=== PATIENT | male | born 1980 | race Caucasian/White ===

== ENCOUNTER 2017-11-01 21:16 | Inpatient (IN) | payer OTHER ==
[2017-11-01] MEDS ORDERED: ONDANSETRON 4 MG INJ IV (22:30)
[2017-11-01] MEDS ORDERED: VANCOMYCIN IV PER PHARMACY XX (22:30)
[2017-11-01] MEDS ORDERED: NACL 0.9% 3 ML SYG IV ×2 (22:30)
[2017-11-01] MEDS ORDERED: HYDROCODONE/APAP (5/325) TAB PO (22:30)
[2017-11-01] MEDS ORDERED: ACETAMINOPHEN 325 MG TAB PO (22:30)
[2017-11-01] MEDS ORDERED: BISACODYL (EC) 5 MG TAB PO (22:30)
[2017-11-01] MEDS ORDERED: DOCUSATE SODIUM 100 MG CAP PO (22:30)
[2017-11-01] MEDS ORDERED: GLUCOSE GEL 15 GRAM TUBE BUCCAL (23:00)
[2017-11-01] MEDS ORDERED: GLUCAGON 1 MG INJ IM (23:00)
[2017-11-01] MEDS ORDERED: GLUCOSE GEL 15 GRAM TUBE PO (23:00)
[2017-11-01] MEDS ORDERED: DEXTROSE 50% 50 ML SYRINGE IV ×2 (23:00)
[2017-11-01 23:13] LABS: ADD MAN DIFF? NO
[2017-11-01 23:16] LABS: BASOPHILS % 0.2 % (0.0-2.0); EOSINOPHILS # 0.3 10^3/ul (0.0-0.5); EOSINOPHILS % 3.4 % (0.0-7.0); HEMATOCRIT 30.9 % (42.0-52.0); HEMOGLOBIN 10.3 g/dl (14.0-18.0); LYMPHOCYTES % 22.5 % (15.0-51.0); MEAN CORPUSCULAR HEMOGLOBIN 27.9 pg (29.0-33.0); MEAN CORPUSCULAR HGB CONC 33.3 g/dl (32.0-37.0); MEAN CORPUSCULAR VOLUME 83.7 fl (82.0-101.0); MEAN PLATELET VOLUME 9.4 fl (7.4-10.4); MONOCYTE # 0.7 10^3/ul (0.3-0.9); MONOCYTES % 7.4 % (0.0-11.0); NEUTROPHILS % 66.1 % (39.0-77.0); PLATELET COUNT 247 10^3/UL (140-415); RED BLOOD COUNT 3.69 10^6/ul (4.70-6.10)
[2017-11-01] MEDS: INSULIN GLARGINE [LANTus] (100 UNITS/ML) SYG SC (23:34)
[2017-11-01 23:41] LABS: ALANINE AMINOTRANSFERASE 29 IU/L (13-69); ALBUMIN 3.2 g/dl (3.3-4.9); ALBUMIN/GLOBULIN RATIO 0.88; ALKALINE PHOSPHATASE 174 IU/L (42-121); ANION GAP 10 (8-16); ASPARTATE AMINO TRANSFERASE 28 IU/L (15-46); CALCIUM 8.7 mg/dl (8.4-10.2); CARBON DIOXIDE 25 mmol/L (21-31); CHLORIDE 106 mmol/L (97-110); CREATININE 2.67 mg/dl (0.61-1.24); GLUCOSE 357 mg/dl (70-220); POTASSIUM 4.9 mmol/L (3.5-5.1); SODIUM 136 mmol/L (135-144); TOTAL PROTEIN 6.8 g/dl (6.1-8.1)
[2017-11-01 23:43] LABS: BLOOD UREA NITROGEN 34 mg/dl (7-20)
[2017-11-01] MEDS: INSULIN ASPART [NOVOLOG] 3 ML PEN SC (23:46)
[2017-11-02] MEDS: ACCU-CHEK XX (02:00)
[2017-11-02] MEDS: INSULIN ASPART [NOVOLOG] 3 ML PEN SC ×8 (02:20→21:20)
[2017-11-02 05:23] LABS: ADD MAN DIFF? NO
[2017-11-02 05:27] LABS: WHITE BLOOD COUNT 8.2 10^3/ul (4.8-10.8)
[2017-11-02 05:27] LABS: BASOPHILS % 0.4 % (0.0-2.0); EOSINOPHILS # 0.4 10^3/ul (0.0-0.5); EOSINOPHILS % 4.3 % (0.0-7.0); HEMATOCRIT 27.8 % (42.0-52.0); HEMOGLOBIN 9.3 g/dl (14.0-18.0); LYMPHOCYTES # 1.7 10^3/ul (0.8-2.9); LYMPHOCYTES % 20.5 % (15.0-51.0); MEAN CORPUSCULAR HEMOGLOBIN 27.9 pg (29.0-33.0); MEAN CORPUSCULAR HGB CONC 33.5 g/dl (32.0-37.0); MEAN CORPUSCULAR VOLUME 83.5 fl (82.0-101.0); MEAN PLATELET VOLUME 9.6 fl (7.4-10.4); MONOCYTE # 0.6 10^3/ul (0.3-0.9); MONOCYTES % 7.7 % (0.0-11.0); NEUTROPHIL # 5.4 10^3/ul (1.6-7.5); NEUTROPHILS % 66.6 % (39.0-77.0); PLATELET COUNT 230 10^3/UL (140-415); RED BLOOD COUNT 3.33 10^6/ul (4.70-6.10); RED CELL DISTRIBUTION WIDTH 12.1 % (11.5-14.5)
[2017-11-02 05:37] LABS: HEMOGLOBIN A1C 11.6 % (0-5.9)
[2017-11-02 05:48] LABS: ALANINE AMINOTRANSFERASE 29 IU/L (13-69); ALBUMIN 2.9 g/dl (3.3-4.9); ALKALINE PHOSPHATASE 148 IU/L (42-121); ANION GAP 10 (8-16); ASPARTATE AMINO TRANSFERASE 22 IU/L (15-46); BLOOD UREA NITROGEN 32 mg/dl (7-20); CALCIUM 8.7 mg/dl (8.4-10.2); CARBON DIOXIDE 25 mmol/L (21-31); CHLORIDE 111 mmol/L (97-110); CHOL/HDL RATIO 3.2 RATIO; CHOLESTEROL 109 mg/dl (100-200); CREATININE 2.56 mg/dl (0.61-1.24); GLUCOSE 231 mg/dl (70-220); HDL CHOLESTEROL 34 mg/dl (28-63); LDL CHOLESTEROL,CALCULATED 59 mg/dl; MAGNESIUM 2.2 mg/dl (1.7-2.5); POTASSIUM 4.5 mmol/L (3.5-5.1); SODIUM 141 mmol/L (135-144); TOTAL PROTEIN 6.5 g/dl (6.1-8.1); TRIGLYCERIDES 81 mg/dl (0-149)
[2017-11-02] MEDS: CEFTRIAXONE 2 GM/50 ML (PMX) 50 ML IVPB (06:14)
[2017-11-02] MEDS ORDERED: LISINOPRIL 20 MG TAB PO (09:00)
[2017-11-02] MEDS ORDERED: METHADONE 20 MG PO (09:00)
[2017-11-02 10:02] LABS: IRON < 10 ug/dl (35-150)
[2017-11-02 10:08] LABS: TOTAL IRON BINDING CAPACITY 218 ug/dl (241-421)
[2017-11-02] MEDS: VANCOMYCIN 1 GM 250 ML IVPB (12:18)
[2017-11-02] MEDS ORDERED: ACETAMINOPHEN 325 MG TAB PO (13:30)
[2017-11-02 13:54] LABS: ADD UMIC YES; UR ASCORBIC ACID NEGATIVE (NEGATIVE); UR BILIRUBIN (Dip) NEGATIVE (NEGATIVE); UR BLOOD (Dip) NEGATIVE (NEGATIVE); UR CLARITY CLEAR (CLEAR); UR COLOR YELLOW (YELLOW); UR GLUCOSE (Dip) 1+ mg/dL (NEGATIVE); UR KETONES (Dip) NEGATIVE (NEGATIVE); UR LEUKOCYTE ESTERASE (Dip) NEGATIVE Leu/ul (NEGATIVE); UR NITRITE (Dip) NEGATIVE (NEGATIVE); UR RBC 1 /HPF (0-5); UR SPECIFIC GRAVITY (Dip) 1.012 (1.003-1.030); UR TOTAL PROTEIN (Dip) 2+ mg/dl (NEGATIVE); UR UROBILINOGEN (Dip) NEGATIVE (NEGATIVE); UR WBC 0 /HPF (0-5)
[2017-11-02 14:00] LABS: SODIUM,URINE RANDOM 126 mmol/L (30-90)
[2017-11-02] MEDS: METHADONE 10 MG TAB PO (15:19)
[2017-11-02] MEDS: HEPARIN 5,000 UNIT/0.5 ML VIAL SC ×3 (15:24→21:27)
[2017-11-02] MEDS: hydrALAzine 20 MG INJ IV (15:27)
[2017-11-02] MEDS ORDERED: INSULIN GLARGINE HUM REC ANLOG SC (21:00)
[2017-11-02] MEDS ORDERED: [UNRECOGNIZED DRUG - OTHER] SC (21:00)
[2017-11-02] MEDS: INSULIN GLARGINE [LANTus] (100 UNITS/ML) SYG SC (21:19)
[2017-11-03] MEDS: ACCU-CHEK XX (02:00)
[2017-11-03] MEDS: GLUCOSE GEL 15 GRAM TUBE PO (02:17)
[2017-11-03] MEDS: CEFTRIAXONE 2 GM/50 ML (PMX) 50 ML IVPB (05:37)
[2017-11-03] MEDS: HEPARIN 5,000 UNIT/0.5 ML VIAL SC ×3 (05:43→22:00)
[2017-11-03] MEDS: INSULIN ASPART [NOVOLOG] 3 ML PEN SC ×7 (07:30→21:25)
[2017-11-03] MEDS: CHOLECALCIFEROL 2,000 UNIT CAP PO (08:49)
[2017-11-03] MEDS: METHADONE 10 MG TAB PO (08:50)
[2017-11-03 11:27] LABS: ADD MAN DIFF? NO
[2017-11-03] MEDS: VANCOMYCIN 1 GM 250 ML IVPB (11:49)
[2017-11-03 11:51] LABS: PHOSPHORUS 4.6 mg/dl (2.5-4.9)
[2017-11-03 11:52] LABS: ANION GAP 13 (8-16); BLOOD UREA NITROGEN 28 mg/dl (7-20); CALCIUM 8.5 mg/dl (8.4-10.2); CARBON DIOXIDE 24 mmol/L (21-31); CHLORIDE 106 mmol/L (97-110); CREATININE 2.15 mg/dl (0.61-1.24); GLUCOSE 221 mg/dl (70-220); POTASSIUM 5.4 mmol/L (3.5-5.1); SODIUM 138 mmol/L (135-144)
[2017-11-03 13:03] LABS: WHITE BLOOD COUNT 8.6 10^3/ul (4.8-10.8)
[2017-11-03 13:04] LABS: BASOPHILS % 0.3 % (0.0-2.0); EOSINOPHILS # 0.3 10^3/ul (0.0-0.5); EOSINOPHILS % 3.9 % (0.0-7.0); HEMATOCRIT 29.4 % (42.0-52.0); HEMOGLOBIN 9.7 g/dl (14.0-18.0); LYMPHOCYTES # 1.3 10^3/ul (0.8-2.9); LYMPHOCYTES % 15.4 % (15.0-51.0); MEAN CORPUSCULAR HEMOGLOBIN 27.5 pg (29.0-33.0); MEAN CORPUSCULAR VOLUME 83.3 fl (82.0-101.0); MEAN PLATELET VOLUME 9.9 fl (7.4-10.4); MONOCYTE # 0.5 10^3/ul (0.3-0.9); MONOCYTES % 6.3 % (0.0-11.0); NEUTROPHIL # 6.4 10^3/ul (1.6-7.5); NEUTROPHILS % 73.6 % (39.0-77.0); PLATELET COUNT 312 10^3/UL (140-415); RED BLOOD COUNT 3.53 10^6/ul (4.70-6.10); RED CELL DISTRIBUTION WIDTH 12.3 % (11.5-14.5)
[2017-11-03] MEDS: SOD CHLORIDE 0.9% 100 ML (16:55)
[2017-11-03] MEDS ORDERED: INSULIN ASPART [NOVOLOG] 3 ML PEN SC (17:30)
[2017-11-03] MEDS: SODIUM HYPOCHLORITE (1/40) 1 APPLIC BTL IRR (18:34)
[2017-11-03] MEDS: INSULIN GLARGINE [LANTus] (100 UNITS/ML) SYG SC (20:41)
[2017-11-04] MEDS: ACCU-CHEK XX (02:00)
[2017-11-04] MEDS: HEPARIN 5,000 UNIT/0.5 ML VIAL SC ×3 (05:39→22:00)
[2017-11-04 05:48] LABS: MAGNESIUM 1.8 mg/dl (1.7-2.5)
[2017-11-04 05:51] LABS: ANION GAP 13 (8-16); BLOOD UREA NITROGEN 30 mg/dl (7-20); CALCIUM 8.2 mg/dl (8.4-10.2); CARBON DIOXIDE 26 mmol/L (21-31); CHLORIDE 106 mmol/L (97-110); CREATININE 2.19 mg/dl (0.61-1.24); GLUCOSE 201 mg/dl (70-220); POTASSIUM 5.6 mmol/L (3.5-5.1); SODIUM 139 mmol/L (135-144)
[2017-11-04] MEDS: CEFTRIAXONE 2 GM/50 ML (PMX) 50 ML IVPB (06:27)
[2017-11-04 07:52] LABS: PHOSPHORUS 5.2 mg/dl (2.5-4.9)
[2017-11-04] MEDS: CHOLECALCIFEROL 2,000 UNIT CAP PO (08:17)
[2017-11-04] MEDS: INSULIN ASPART [NOVOLOG] 3 ML PEN SC ×5 (08:17→22:07)
[2017-11-04] MEDS: METHADONE 10 MG TAB PO (08:18)
[2017-11-04] MEDS: SODIUM HYPOCHLORITE (1/40) 1 APPLIC BTL IRR (08:20)
[2017-11-04 10:46] LABS: VANCOMYCIN,TROUGH 19.2 ug/ml (10.0-20.0)
[2017-11-04] MEDS: NA POLYST SULFON 15 GM/60 ML BTL PO (14:07)
[2017-11-04] MEDS ORDERED: CALCIUM CARBONATE 500 MG CHEW TAB PO (19:05)
[2017-11-04] MEDS: VANCOMYCIN 750 MG in SOD CHLORIDE 0.9% 150 ML IVPB (21:55)
[2017-11-04] MEDS: INSULIN GLARGINE [LANTus] (100 UNITS/ML) SYG SC (21:56)
[2017-11-05] MEDS: ACCU-CHEK XX (02:00)
[2017-11-05 05:09] LABS: ADD MAN DIFF? NO
[2017-11-05 05:12] LABS: WHITE BLOOD COUNT 6.6 10^3/ul (4.8-10.8)
[2017-11-05 05:12] LABS: BASOPHILS % 0.3 % (0.0-2.0); EOSINOPHILS # 0.3 10^3/ul (0.0-0.5); HEMATOCRIT 26.1 % (42.0-52.0); HEMOGLOBIN 8.8 g/dl (14.0-18.0); IMMATURE GRANS #M 0.02 10^3/ul; IMMATURE GRANS % (M) 0.3 %; LYMPHOCYTES # 1.6 10^3/ul (0.8-2.9); LYMPHOCYTES % 24.2 % (15.0-51.0); MEAN CORPUSCULAR HEMOGLOBIN 28.3 pg (29.0-33.0); MEAN CORPUSCULAR HGB CONC 33.7 g/dl (32.0-37.0); MEAN CORPUSCULAR VOLUME 83.9 fl (82.0-101.0); MEAN PLATELET VOLUME 9.3 fl (7.4-10.4); MONOCYTE # 0.6 10^3/ul (0.3-0.9); MONOCYTES % 9.7 % (0.0-11.0); NEUTROPHILS % 60.5 % (39.0-77.0); PLATELET COUNT 273 10^3/UL (140-415); RED BLOOD COUNT 3.11 10^6/ul (4.70-6.10); RED CELL DISTRIBUTION WIDTH 11.9 % (11.5-14.5)
[2017-11-05] MEDS: HEPARIN 5,000 UNIT/0.5 ML VIAL SC ×3 (05:16→21:41)
[2017-11-05 05:31] LABS: ANION GAP 10 (8-16); BLOOD UREA NITROGEN 28 mg/dl (7-20); CALCIUM 8.4 mg/dl (8.4-10.2); CARBON DIOXIDE 27 mmol/L (21-31); CHLORIDE 107 mmol/L (97-110); CREATININE 1.94 mg/dl (0.61-1.24); GLUCOSE 133 mg/dl (70-220); POTASSIUM 4.5 mmol/L (3.5-5.1); SODIUM 139 mmol/L (135-144)
[2017-11-05 05:41] LABS: MAGNESIUM 1.8 mg/dl (1.7-2.5)
[2017-11-05] MEDS: CEFTRIAXONE 2 GM/50 ML (PMX) 50 ML IVPB (06:28)
[2017-11-05] MEDS: INSULIN ASPART [NOVOLOG] 3 ML PEN SC ×7 (08:00→21:23)
[2017-11-05] MEDS: CHOLECALCIFEROL 2,000 UNIT CAP PO (08:20)
[2017-11-05] MEDS: METHADONE 10 MG TAB PO (08:21)
[2017-11-05] MEDS: SODIUM HYPOCHLORITE (1/40) 1 APPLIC BTL IRR (08:23)
[2017-11-05 15:29] LABS: COLLECTION PERIOD 24 hrs
[2017-11-05 16:37] LABS: COLLECTION PERIOD 24 hrs; SCRET 1.94 mg/dl (0.61-1.24); VOLUME 2275 ml/24hrs
[2017-11-05 16:38] LABS: CREATININE CLEARANCE 39.6 mls/min (84.0-162.0); CREATININE,URINE RANDOM 48.67 mg/dl (20-370)
[2017-11-05 17:47] LABS: VOLUME 2275 mls
[2017-11-05] MEDS: SACCHAROMYCES BOULARDII 250 MG CAP PO (21:21)
[2017-11-05] MEDS: INSULIN GLARGINE [LANTus] (100 UNITS/ML) SYG SC (21:22)
[2017-11-05] MEDS: VANCOMYCIN 750 MG in SOD CHLORIDE 0.9% 150 ML IVPB (21:24)
[2017-11-06] MEDS: ACCU-CHEK XX (01:24)
[2017-11-06] MEDS: INSULIN ASPART [NOVOLOG] 3 ML PEN SC ×9 (01:34→21:14)
[2017-11-06] MEDS: HEPARIN 5,000 UNIT/0.5 ML VIAL SC ×3 (05:31→21:05)
[2017-11-06] MEDS: CEFTRIAXONE 2 GM/50 ML (PMX) 50 ML IVPB (06:06)
[2017-11-06 06:37] LABS: ADD MAN DIFF? NO
[2017-11-06 06:42] LABS: BASOPHILS % 0.3 % (0.0-2.0); EOSINOPHILS # 0.4 10^3/ul (0.0-0.5); EOSINOPHILS % 4.9 % (0.0-7.0); HEMOGLOBIN 9.5 g/dl (14.0-18.0); IMMATURE GRANS #M 0.05 10^3/ul; IMMATURE GRANS % (M) 0.7 %; LYMPHOCYTES # 1.6 10^3/ul (0.8-2.9); LYMPHOCYTES % 22.8 % (15.0-51.0); MEAN CORPUSCULAR HEMOGLOBIN 27.5 pg (29.0-33.0); MEAN CORPUSCULAR HGB CONC 32.8 g/dl (32.0-37.0); MEAN CORPUSCULAR VOLUME 84.1 fl (82.0-101.0); MEAN PLATELET VOLUME 9.7 fl (7.4-10.4); MONOCYTE # 0.6 10^3/ul (0.3-0.9); MONOCYTES % 8.4 % (0.0-11.0); NEUTROPHIL # 4.5 10^3/ul (1.6-7.5); NEUTROPHILS % 62.9 % (39.0-77.0); PLATELET COUNT 290 10^3/UL (140-415); RED BLOOD COUNT 3.45 10^6/ul (4.70-6.10)
[2017-11-06 06:42] LABS: WHITE BLOOD COUNT 7.1 10^3/ul (4.8-10.8)
[2017-11-06 07:07] LABS: PHOSPHORUS 5.2 mg/dl (2.5-4.9)
[2017-11-06 07:08] LABS: ANION GAP 14 (8-16); BLOOD UREA NITROGEN 35 mg/dl (7-20); CALCIUM 8.5 mg/dl (8.4-10.2); CARBON DIOXIDE 23 mmol/L (21-31); CHLORIDE 109 mmol/L (97-110); CREATININE 1.97 mg/dl (0.61-1.24); GLUCOSE 83 mg/dl (70-220); SODIUM 141 mmol/L (135-144)
[2017-11-06 07:28] LABS: POTASSIUM 5.3 mmol/L (3.5-5.1)
[2017-11-06] MEDS: SODIUM HYPOCHLORITE (1/40) 1 APPLIC BTL IRR ×2 (08:37→09:06)
[2017-11-06] MEDS: SACCHAROMYCES BOULARDII 250 MG CAP PO ×3 (08:37→21:13)
[2017-11-06] MEDS: METHADONE 10 MG TAB PO ×2 (08:38→09:03)
[2017-11-06] MEDS: ASPIRIN (EC) 81 MG TAB PO ×2 (08:38→09:03)
[2017-11-06] MEDS: CHOLECALCIFEROL 2,000 UNIT CAP PO ×2 (08:38→09:03)
[2017-11-06] MEDS: VANCOMYCIN 750 MG in SOD CHLORIDE 0.9% 150 ML IVPB (21:10)
[2017-11-06] MEDS: INSULIN GLARGINE [LANTus] (100 UNITS/ML) SYG SC (21:11)
[2017-11-07] MEDS: INSULIN ASPART [NOVOLOG] 3 ML PEN SC ×9 (01:59→23:16)
[2017-11-07] MEDS ORDERED: INSULIN ASPART [NOVOLOG] 3 ML PEN SC (05:00)
[2017-11-07] MEDS: HEPARIN 5,000 UNIT/0.5 ML VIAL SC ×3 (05:16→22:00)
[2017-11-07] MEDS: CEFTRIAXONE 2 GM/50 ML (PMX) 50 ML IVPB (05:46)
[2017-11-07] MEDS ORDERED: CEFAZOLIN 1 GM INJ (07:00)
[2017-11-07] MEDS ORDERED: PROPOFOL 200 MG INJ (07:00)
[2017-11-07] MEDS: SODIUM HYPOCHLORITE (1/40) 1 APPLIC BTL IRR (08:08)
[2017-11-07] MEDS: SACCHAROMYCES BOULARDII 250 MG CAP PO ×3 (08:08→21:07)
[2017-11-07] MEDS: ASPIRIN (EC) 81 MG TAB PO ×2 (08:08→09:00)
[2017-11-07] MEDS: METHADONE 10 MG TAB PO ×2 (08:08→09:29)
[2017-11-07] MEDS: CHOLECALCIFEROL 2,000 UNIT CAP PO ×2 (08:09→09:29)
[2017-11-07 10:32] LABS: ADD MAN DIFF? NO
[2017-11-07 10:35] LABS: BASOPHILS % 0.3 % (0.0-2.0); EOSINOPHILS # 0.3 10^3/ul (0.0-0.5); EOSINOPHILS % 4.3 % (0.0-7.0); HEMATOCRIT 30.7 % (42.0-52.0); HEMOGLOBIN 10.4 g/dl (14.0-18.0); IMMATURE GRANS #M 0.02 10^3/ul; IMMATURE GRANS % (M) 0.3 %; LYMPHOCYTES # 1.8 10^3/ul (0.8-2.9); LYMPHOCYTES % 24.5 % (15.0-51.0); MEAN CORPUSCULAR HEMOGLOBIN 28.4 pg (29.0-33.0); MEAN CORPUSCULAR HGB CONC 33.9 g/dl (32.0-37.0); MEAN CORPUSCULAR VOLUME 83.9 fl (82.0-101.0); MEAN PLATELET VOLUME 9.2 fl (7.4-10.4); MONOCYTE # 0.5 10^3/ul (0.3-0.9); MONOCYTES % 6.4 % (0.0-11.0); NEUTROPHIL # 4.6 10^3/ul (1.6-7.5); NEUTROPHILS % 64.2 % (39.0-77.0); PLATELET COUNT 343 10^3/UL (140-415); RED BLOOD COUNT 3.66 10^6/ul (4.70-6.10); RED CELL DISTRIBUTION WIDTH 11.9 % (11.5-14.5)
[2017-11-07 10:35] LABS: WHITE BLOOD COUNT 7.2 10^3/ul (4.8-10.8)
[2017-11-07 11:00] LABS: ALANINE AMINOTRANSFERASE 41 IU/L (13-69); ALBUMIN/GLOBULIN RATIO 0.71; ALKALINE PHOSPHATASE 168 IU/L (42-121); ANION GAP 11 (8-16); ASPARTATE AMINO TRANSFERASE 48 IU/L (15-46); BLOOD UREA NITROGEN 35 mg/dl (7-20); CALCIUM 8.7 mg/dl (8.4-10.2); CARBON DIOXIDE 26 mmol/L (21-31); CHLORIDE 110 mmol/L (97-110); CREATININE 1.86 mg/dl (0.61-1.24); GLUCOSE 86 mg/dl (70-220); POTASSIUM 5.5 mmol/L (3.5-5.1); SODIUM 141 mmol/L (135-144); TOTAL PROTEIN 7.2 g/dl (6.1-8.1)
[2017-11-07] MEDS: DEXTROSE 5%-0.45% NACL 1,000 ML IV (11:18)
[2017-11-07] MEDS: NA POLYST SULFON 15 GM/60 ML BTL PR (11:18)
[2017-11-07] MEDS ORDERED: FENTAnyl 50 MCG/ML VIAL (18:51)
[2017-11-07] MEDS ORDERED: BUPIVACAINE 0.5% (SDV) 30 ML INJ (18:51)
[2017-11-07] MEDS ORDERED: MIDAZOLAM 1 MG/ML 2 ML INJ (18:51)
[2017-11-07] MEDS ORDERED: KETOROLAC 30 MG INJ (18:52)
[2017-11-07] MEDS: BUPIVACAINE 0.5% (SDV) 30 ML INJ INJ (19:10)
[2017-11-07] MEDS: POLYMYXIN/BACITRACIN 1L IRRIG IRR (19:12)
[2017-11-07] MEDS ORDERED: ACETAMINOPHEN 325 MG TAB PO (20:00)
[2017-11-07] MEDS ORDERED: ONDANSETRON 4 MG INJ IV (20:00)
[2017-11-07] MEDS: VANCO TROUGH AT XX (21:00)
[2017-11-07] MEDS: INSULIN GLARGINE [LANTus] (100 UNITS/ML) SYG SC (21:16)
[2017-11-07 21:25] LABS: VANCOMYCIN,TROUGH 12.7 ug/ml (10.0-20.0)
[2017-11-07] MEDS: VANCOMYCIN 750 MG in SOD CHLORIDE 0.9% 150 ML IVPB (22:57)
[2017-11-08] MEDS: ACCU-CHEK XX (02:29)
[2017-11-08] MEDS: DEXTROSE 5%-0.45% NACL 1,000 ML IV (05:28)
[2017-11-08] MEDS: CEFTRIAXONE 2 GM/50 ML (PMX) 50 ML IVPB (05:37)
[2017-11-08] MEDS: HEPARIN 5,000 UNIT/0.5 ML VIAL SC ×3 (05:46→21:38)
[2017-11-08] MEDS: SILVER NITRATE SWAB TOP (07:54)
[2017-11-08] MEDS: SODIUM HYPOCHLORITE (1/40) 1 APPLIC BTL IRR (08:00)
[2017-11-08] MEDS: INSULIN ASPART [NOVOLOG] 3 ML PEN SC ×7 (08:10→20:53)
[2017-11-08] MEDS: CHOLECALCIFEROL 2,000 UNIT CAP PO (08:11)
[2017-11-08] MEDS: ASPIRIN (EC) 81 MG TAB PO (08:11)
[2017-11-08] MEDS: METHADONE 10 MG TAB PO (08:11)
[2017-11-08] MEDS: SACCHAROMYCES BOULARDII 250 MG CAP PO ×2 (08:11→20:47)
[2017-11-08] MEDS: hydrALAzine 20 MG INJ IV (08:12)
[2017-11-08] MEDS: NA POLYST SULFON 15 GM/60 ML BTL PO (09:00)
[2017-11-08 11:26] LABS: PROCALCITONIN 0.46 ng/mL (<0.10)
[2017-11-08] MEDS: INSULIN GLARGINE [LANTus] (100 UNITS/ML) SYG SC (20:46)
[2017-11-08] MEDS: VANCOMYCIN 750 MG in SOD CHLORIDE 0.9% 150 ML IVPB (21:32)
[2017-11-09] MEDS: ACCU-CHEK XX (02:00)
[2017-11-09] MEDS: CEFTRIAXONE 2 GM/50 ML (PMX) 50 ML IVPB (05:54)
[2017-11-09] MEDS: HEPARIN 5,000 UNIT/0.5 ML VIAL SC ×3 (06:00→22:00)
[2017-11-09] MEDS: INSULIN ASPART [NOVOLOG] 3 ML PEN SC ×7 (08:00→21:01)
[2017-11-09 08:36] LABS: ANION GAP 11 (8-16); BLOOD UREA NITROGEN 33 mg/dl (7-20); CALCIUM 8.9 mg/dl (8.4-10.2); CARBON DIOXIDE 25 mmol/L (21-31); CHLORIDE 110 mmol/L (97-110); CREATININE 1.95 mg/dl (0.61-1.24); GLUCOSE 81 mg/dl (70-220); SODIUM 141 mmol/L (135-144)
[2017-11-09] MEDS: SODIUM HYPOCHLORITE (1/40) 1 APPLIC BTL IRR (09:00)
[2017-11-09] MEDS: ASPIRIN (EC) 81 MG TAB PO (09:27)
[2017-11-09] MEDS: CHOLECALCIFEROL 2,000 UNIT CAP PO (09:27)
[2017-11-09] MEDS: METHADONE 10 MG TAB PO (09:27)
[2017-11-09] MEDS: SACCHAROMYCES BOULARDII 250 MG CAP PO ×2 (09:27→21:00)
[2017-11-09] MEDS: NA POLYST SULFON 15 GM/60 ML BTL PO (11:15)
[2017-11-09 14:27] LABS: ALDOSTERONE 2 ng/dL
[2017-11-09] MEDS: INSULIN GLARGINE [LANTus] (100 UNITS/ML) SYG SC (21:02)
[2017-11-09] MEDS: VANCOMYCIN 750 MG in SOD CHLORIDE 0.9% 150 ML IVPB (22:15)
[2017-11-10] MEDS: ACCU-CHEK XX (02:29)
[2017-11-10] MEDS: CEFTRIAXONE 2 GM/50 ML (PMX) 50 ML IVPB (05:51)
[2017-11-10] MEDS: HEPARIN 5,000 UNIT/0.5 ML VIAL SC (05:55)
[2017-11-10] MEDS: INSULIN ASPART [NOVOLOG] 3 ML PEN SC ×3 (08:00→12:22)
[2017-11-10] MEDS: METHADONE 10 MG TAB PO (08:58)
[2017-11-10] MEDS: CHOLECALCIFEROL 2,000 UNIT CAP PO (08:58)
[2017-11-10] MEDS: NA POLYST SULFON 15 GM/60 ML BTL PO (08:59)
[2017-11-10] MEDS: ASPIRIN (EC) 81 MG TAB PO (08:59)
[2017-11-10] MEDS: SACCHAROMYCES BOULARDII 250 MG CAP PO (08:59)
[2017-11-10] MEDS: SODIUM HYPOCHLORITE (1/40) 1 APPLIC BTL IRR (09:00)
== END 2017-11-10 13:20 | disposition home health service (06) | DRG 255 ==
LOC: PP2 21:16
PROVIDERS: Internal Medicine
PROC: 0Y6S0Z0 Detachment at Left 2nd Toe, Complete, Open Approach (ICD-10-PCS; principal; 2017-11-07 10:41)
PROC: 0QBR0ZZ Excision of Left Toe Phalanx, Open Approach (ICD-10-PCS; 2017-11-07 18:50)
PROC: 0JBQ0ZZ Excision of Right Foot Subcutaneous Tissue and Fascia, Open Approach (ICD-10-PCS; 2017-11-07 18:50)
PROC: 02HV33Z Insertion of Infusion Device into Superior Vena Cava, Percutaneous Approach (ICD-10-PCS; 2017-11-07 18:50)
DX: E10.52 Type 1 diabetes mellitus with diabetic peripheral angiopathy with gangrene (principal); A48.0 Gas gangrene; L02.612 Cutaneous abscess of left foot; L03.116 Cellulitis of left lower limb; M86.9 Osteomyelitis, unspecified; N18.4 Chronic kidney disease, stage 4 (severe); I12.9 Hypertensive chronic kidney disease with stage 1 through stage 4 chronic kidney disease, or unspecified chronic kidney disease; E10.621 Type 1 diabetes mellitus with foot ulcer; E10.65 Type 1 diabetes mellitus with hyperglycemia; L97.519 Non-pressure chronic ulcer of other part of right foot with unspecified severity; M20.5X9 Other deformities of toe(s) (acquired), unspecified foot; D50.9 Iron deficiency anemia, unspecified; E10.22 Type 1 diabetes mellitus with diabetic chronic kidney disease; E10.69 Type 1 diabetes mellitus with other specified complication; E10.42 Type 1 diabetes mellitus with diabetic polyneuropathy; L97.529 Non-pressure chronic ulcer of other part of left foot with unspecified severity
CPT/HCPCS: 36569; 71045; 73718; 76775; 76937; 80048; 80053; 80061; 80202; 81001; 82088; 82306; 82575; 82652; 82962; 83036; 83540; 83735; 84100; 84145; 84156; 84300; 84443; 85025; 87070; 89190; 93922

== ENCOUNTER 2018-01-12 13:35 | Inpatient (IN) | payer OTHER ==
[2018-01-12 15:27] LABS: ADD MAN DIFF? NO
[2018-01-12 15:29] LABS: BASOPHILS % 0.2 % (0.0-2.0); EOSINOPHILS # 0.1 10^3/ul (0.0-0.5); EOSINOPHILS % 1.5 % (0.0-7.0); HEMATOCRIT 35.2 % (42.0-52.0); HEMOGLOBIN 11.6 g/dl (14.0-18.0); LYMPHOCYTES # 1.7 10^3/ul (0.8-2.9); MEAN CORPUSCULAR HEMOGLOBIN 28.4 pg (29.0-33.0); MEAN CORPUSCULAR VOLUME 86.3 fl (82.0-101.0); MEAN PLATELET VOLUME 9.3 fl (7.4-10.4); MONOCYTE # 0.5 10^3/ul (0.3-0.9); MONOCYTES % 6.3 % (0.0-11.0); NEUTROPHILS % 71.6 % (39.0-77.0); PLATELET COUNT 240 10^3/UL (140-415); RED BLOOD COUNT 4.08 10^6/ul (4.70-6.10); RED CELL DISTRIBUTION WIDTH 13.4 % (11.5-14.5)
[2018-01-12 15:29] LABS: WHITE BLOOD COUNT 8.4 10^3/ul (4.8-10.8)
[2018-01-12] MEDS: PIPER-TAZO 3.375 GM IV (PMX) 100 ML IVPB (15:29)
[2018-01-12] MEDS: VANCOMYCIN 1 GM (PMX) 250 ML IVPB (15:38)
[2018-01-12 15:48] LABS: ANION GAP 4 (5-13); BLOOD UREA NITROGEN 38 mg/dl (7-20); CALCIUM 9.2 mg/dl (8.4-10.2); CARBON DIOXIDE 25 mmol/L (21-31); CHLORIDE 115 mmol/L (97-110); CREATININE 2.76 mg/dl (0.61-1.24); GLUCOSE 105 mg/dl (70-220); POTASSIUM 4.9 mmol/L (3.5-5.1); SODIUM 144 mmol/L (135-144)
[2018-01-12] MEDS ORDERED: ONDANSETRON 4 MG INJ IV ×2 (16:30→18:00)
[2018-01-12] MEDS ORDERED: ACETAMINOPHEN 325 MG TAB PO ×2 (16:30→18:00)
[2018-01-12] MEDS ORDERED: VANCOMYCIN IV PER PHARMACY XX (18:00)
[2018-01-12] MEDS ORDERED: INSULIN ASPART [NOVOLOG] 3 ML PEN SC (18:00)
[2018-01-12] MEDS ORDERED: GLUCOSE GEL 15 GRAM TUBE PO ×2 (18:00)
[2018-01-12] MEDS ORDERED: NACL 0.9% 3 ML SYG IV (18:00)
[2018-01-12] MEDS ORDERED: DEXTROSE 50% 50 ML SYRINGE IV ×2 (18:00)
[2018-01-12] MEDS ORDERED: GLUCAGON 1 MG INJ IM (18:00)
[2018-01-12] MEDS: SOD CHLORIDE 0.9% 1,000 ML IV (18:27)
[2018-01-12] MEDS: INSULIN ASPART [NOVOLOG] 3 ML PEN SC ×3 (18:38→21:00)
[2018-01-12] MEDS: NICOTINE (7 MG/24 HR) PATCH TRANSDERM (18:48)
[2018-01-12 18:51] LABS: INR 0.86; PROTIME 11.8 Sec (11.9-14.9); PT RATIO 0.9
[2018-01-12 18:52] LABS: PARTIAL THROMBOPLASTIN TIME 26.6 Sec (23.0-35.0)
[2018-01-12] MEDS ORDERED: INSULIN GLARGINE [LANTus] (100 UNITS/ML) SYG SC (20:00)
[2018-01-12] MEDS: INSULIN GLARGINE [LANTus] (100 UNITS/ML) SYG SC (20:47)
[2018-01-12] MEDS: GLUCOSE GEL 15 GRAM TUBE BUCCAL (21:41)
[2018-01-13] MEDS: ACCU-CHEK XX (02:00)
[2018-01-13 05:32] LABS: ADD MAN DIFF? NO
[2018-01-13 05:37] LABS: WHITE BLOOD COUNT 4.8 10^3/ul (4.8-10.8)
[2018-01-13 05:37] LABS: BASOPHILS % 0.4 % (0.0-2.0); EOSINOPHILS # 0.2 10^3/ul (0.0-0.5); EOSINOPHILS % 3.4 % (0.0-7.0); HEMATOCRIT 33.6 % (42.0-52.0); HEMOGLOBIN 10.9 g/dl (14.0-18.0); LYMPHOCYTES # 0.7 10^3/ul (0.8-2.9); LYMPHOCYTES % 14.3 % (15.0-51.0); MEAN CORPUSCULAR HEMOGLOBIN 28.1 pg (29.0-33.0); MEAN CORPUSCULAR HGB CONC 32.4 g/dl (32.0-37.0); MEAN CORPUSCULAR VOLUME 86.6 fl (82.0-101.0); MONOCYTE # 0.3 10^3/ul (0.3-0.9); MONOCYTES % 6.1 % (0.0-11.0); NEUTROPHIL # 3.6 10^3/ul (1.6-7.5); NEUTROPHILS % 75.6 % (39.0-77.0); PLATELET COUNT 170 10^3/UL (140-415); RED BLOOD COUNT 3.88 10^6/ul (4.70-6.10); RED CELL DISTRIBUTION WIDTH 13.5 % (11.5-14.5)
[2018-01-13 05:49] LABS: HEMOGLOBIN A1C 9.3 % (0-5.9)
[2018-01-13 06:12] LABS: ALANINE AMINOTRANSFERASE 44 IU/L (13-69); ALBUMIN 2.6 g/dl (3.3-4.9); ALBUMIN/GLOBULIN RATIO 0.76; ALKALINE PHOSPHATASE 144 IU/L (42-121); ANION GAP 5 (5-13); ASPARTATE AMINO TRANSFERASE 30 IU/L (15-46); BILIRUBIN,INDIRECT 0.1 mg/dl (0-1.1); BILIRUBIN,TOTAL 0.1 mg/dl (0.2-1.3); BLOOD UREA NITROGEN 33 mg/dl (7-20); CALCIUM 8.9 mg/dl (8.4-10.2); CARBON DIOXIDE 19 mmol/L (21-31); CHLORIDE 116 mmol/L (97-110); CREATININE 2.23 mg/dl (0.61-1.24); GLUCOSE 316 mg/dl (70-220); MAGNESIUM 2.1 mg/dl (1.7-2.5); PHOSPHORUS 3.9 mg/dl (2.5-4.9); POTASSIUM 5.6 mmol/L (3.5-5.1); SODIUM 140 mmol/L (135-144)
[2018-01-13 06:19] LABS: FREE THYROXINE INDEX (Calc) 2.82 ug/ml (0.65-3.89); T4 (THYROXINE) 8.8 ug/dl (5.5-11.0)
[2018-01-13 07:31] LABS: C-REACTIVE PROTEIN < 0.5 mg/dl (0.0-0.9)
[2018-01-13 07:45] LABS: ERYTHROCYTE SEDIMENTATION RATE 32 mm/Hr (0-15)
[2018-01-13] MEDS: NICOTINE (7 MG/24 HR) PATCH TRANSDERM (08:26)
[2018-01-13] MEDS: SODIUM HYPOCHLORITE (1/40) 1 APPLIC BTL IRR (08:26)
[2018-01-13] MEDS: INSULIN ASPART [NOVOLOG] 3 ML PEN SC ×7 (08:45→20:47)
[2018-01-13] MEDS: AMLODIPINE 10 MG TAB PO (10:14)
[2018-01-13] MEDS: NA POLYST SULFON 15 GM/60 ML BTL PO (10:17)
[2018-01-13] MEDS: VANCOMYCIN 750 MG in SOD CHLORIDE 0.9% 150 ML IVPB (15:46)
[2018-01-13] MEDS ORDERED: PIPER-TAZO 3.375 GM IV (PMX) 100 ML IVPB (18:00)
[2018-01-13] MEDS: LOPERAMIDE HCL 1 MG/5 ML LIQUID (10 ML UD CUP) PO (18:26)
[2018-01-13] MEDS: INSULIN GLARGINE [LANTus] (100 UNITS/ML) SYG SC (20:48)
[2018-01-13] MEDS: NICOTINE (21 MG/24 HR) PATCH TRANSDERM (22:28)
[2018-01-14] MEDS: ACCU-CHEK XX (02:00)
[2018-01-14] MEDS: INSULIN ASPART [NOVOLOG] 3 ML PEN SC ×9 (03:03→20:31)
[2018-01-14] MEDS: INSULIN GLARGINE [LANTus] (100 UNITS/ML) SYG SC ×3 (06:50→22:33)
[2018-01-14] MEDS: AMLODIPINE 10 MG TAB PO (08:29)
[2018-01-14] MEDS: NICOTINE (7 MG/24 HR) PATCH TRANSDERM (08:30)
[2018-01-14] MEDS: SODIUM HYPOCHLORITE (1/40) 1 APPLIC BTL IRR (08:32)
[2018-01-14 14:07] LABS: ADD MAN DIFF? NO
[2018-01-14 14:12] LABS: BASOPHILS % 0.5 % (0.0-2.0); EOSINOPHILS # 0.1 10^3/ul (0.0-0.5); HEMATOCRIT 34.1 % (42.0-52.0); HEMOGLOBIN 10.8 g/dl (14.0-18.0); LYMPHOCYTES % 16.1 % (15.0-51.0); MEAN CORPUSCULAR HEMOGLOBIN 28.2 pg (29.0-33.0); MEAN CORPUSCULAR HGB CONC 31.7 g/dl (32.0-37.0); MEAN PLATELET VOLUME 10.6 fl (7.4-10.4); MONOCYTE # 0.4 10^3/ul (0.3-0.9); NEUTROPHIL # 4.5 10^3/ul (1.6-7.5); NEUTROPHILS % 74.2 % (39.0-77.0); PLATELET COUNT 165 10^3/UL (140-415); POSITIVE DIFF @See below; RED BLOOD COUNT 3.83 10^6/ul (4.70-6.10); RED CELL DISTRIBUTION WIDTH 13.2 % (11.5-14.5)
[2018-01-14 14:12] LABS: WHITE BLOOD COUNT 6.1 10^3/ul (4.8-10.8)
[2018-01-14 14:27] LABS: ANION GAP 9 (5-13); BLOOD UREA NITROGEN 38 mg/dl (7-20); CALCIUM 8.6 mg/dl (8.4-10.2); CARBON DIOXIDE 16 mmol/L (21-31); CHLORIDE 114 mmol/L (97-110); CREATININE 2.05 mg/dl (0.61-1.24); GLUCOSE 271 mg/dl (70-220); POTASSIUM 5.1 mmol/L (3.5-5.1); SODIUM 139 mmol/L (135-144)
[2018-01-14 14:34] LABS: PHOSPHORUS 3.5 mg/dl (2.5-4.9)
[2018-01-14 14:34] LABS: MAGNESIUM 2.1 mg/dl (1.7-2.5)
[2018-01-14] MEDS: VANCOMYCIN 750 MG in SOD CHLORIDE 0.9% 150 ML IVPB (15:27)
[2018-01-15] MEDS: ACCU-CHEK XX (01:56)
[2018-01-15] MEDS: INSULIN ASPART [NOVOLOG] 3 ML PEN SC ×5 (02:06→12:09)
[2018-01-15] MEDS: AMLODIPINE 10 MG TAB PO (08:51)
[2018-01-15] MEDS: NICOTINE (7 MG/24 HR) PATCH TRANSDERM (08:51)
[2018-01-15] MEDS: SODIUM HYPOCHLORITE (1/40) 1 APPLIC BTL IRR (08:52)
[2018-01-15] MEDS ORDERED: INSULIN GLARGINE [LANTus] (100 UNITS/ML) SYG SC (20:00)
[2018-01-15] MEDS ORDERED: AMOXICILLIN/CLAV 875 MG TAB PO (21:00)
[2018-01-17 10:46] LABS: PROCALCITONIN 0.15 ng/mL (<0.10)
== END 2018-01-15 16:51 | disposition home health service (06) | DRG 623 ==
LOC: E/R 13:35 → PP2 16:23
PROC: 0JBQ0ZZ Excision of Right Foot Subcutaneous Tissue and Fascia, Open Approach (ICD-10-PCS; principal; 2018-01-14)
DX: E10.621 Type 1 diabetes mellitus with foot ulcer (principal); L03.115 Cellulitis of right lower limb; L97.519 Non-pressure chronic ulcer of other part of right foot with unspecified severity; I12.9 Hypertensive chronic kidney disease with stage 1 through stage 4 chronic kidney disease, or unspecified chronic kidney disease; N17.9 Acute kidney failure, unspecified; E10.51 Type 1 diabetes mellitus with diabetic peripheral angiopathy without gangrene; E10.65 Type 1 diabetes mellitus with hyperglycemia; N18.4 Chronic kidney disease, stage 4 (severe); E10.42 Type 1 diabetes mellitus with diabetic polyneuropathy; F17.200 Nicotine dependence, unspecified, uncomplicated; E10.22 Type 1 diabetes mellitus with diabetic chronic kidney disease; Z89.422 Acquired absence of other left toe(s)
CPT/HCPCS: 36415; 73660; 80048; 80053; 82962; 83036; 83735; 84100; 84145; 84436; 84479; 85025; 85610; 85651; 85730; 86140; 87070; 90686; 96365; 96375; 97162; 99285-25